=== PATIENT | female | born 1950 | race American Indian/Alaskan Native ===

== ENCOUNTER 2018-01-20 08:32 | Outpatient (CLI) | payer BC, MEDICARE ==
--- NOTE | 2018-01-20 09:53 | Mammography Report ---
BILATERAL DIGITAL SCREENING MAMMOGRAM with CAD: 01/20/18 08:32:00 CLINICAL: Routine screening. COMPARISON: 02/03/15 FINDINGS: There are bilateral scattered areas of fibroglandular density.No mass, architectural distortion or suspicious calcifications. IMPRESSION: No mammographic evidence of malignancy. BI-RADS CATEGORY: 1 -- Negative RECOMMENDATION: Routine mammographic screening in one year. COMMENT: Patient follow-up letters are generated by our [facility] application.
--- NOTE | 2018-01-20 10:22 | Mammography Report ---
BONE DEXA:01/20/18 08:32:00 CLINICAL: Postmenopausal. No comparison. TECHNIQUE: Two site bone DEXA performed on an Hologic scanner. FINDINGS: The average BMD of the lumbar spine L1-L4 is 1.015g/cm squared with a T-score of -1.2 and a Z-score of +0.7. The average BMD of the left hip is 1.038g/cm squared with a T-score of 0 and a Z-score of +1.0. IMPRESSION: 1. WHO classification: Osteopenia with increased fracture risk based on lumbar spine measurements. 2. WHO classification: Normal with average fracture risk based on left hip measurements. RECOMMENDATION: Clinical correlation and routine screening. DEFINITIONS: BMD = Bone Mineral Density T-score = BMD related to mean peak bone mass of young adult (mean expressed in Standard Deviation) Z-score = Age matched BMD expressed in SD World Health Organization (WHO) Diagnostic Criteria Normal T-score > -1 SD Osteopenia T-score between -1 and -2.4 SD Osteoporosis T-score -2.5 SD or below NOTE: BMD is not the only risk factor for fracture. One should also consider factors such as the patient's age, risk of falling, previous osteoporotic fracture, family history of osteoporotic fractures, current smoker, and low body weight. Z-scores are not calculated if >80 years of age.
--- NOTE | 2018-01-20 11:12 | XRay Report ---
XRAY RIGHT SHOULDER THREE VIEWS: 01/20/18 08:32:00 CLINICAL: Acute right shoulder pain. FINDINGS: Normal glenohumeral alignment and minimal glenohumeral joint arthritis. Normal AC joint. No fracture or dislocation. Subchondral cysts and irregularity at the greater tuberosity of the humerus. Normal soft tissues. IMPRESSION: Degenerative changes at the greater tuberosity suggesting possible rotator cuff disease.
== END 2018-01-20 08:33 | disposition home or self-care (01) ==
LOC: SPVWC 08:32
PROVIDERS: ATTEND Internal Medicine
DX: Z12.31 Encounter for screening mammogram for malignant neoplasm of breast (principal); M19.011 Primary osteoarthritis, right shoulder; M85.88 Other specified disorders of bone density and structure, other site; M25.811 Other specified joint disorders, right shoulder; Z78.0 Asymptomatic menopausal state
CPT/HCPCS: 77067; 77080

== ENCOUNTER 2018-11-30 09:26 | Outpatient (CLI) | payer BC, MEDICARE ==
--- NOTE | 2018-11-30 10:32 | XRay Report ---
XRAY LEFT SHOULDER THREE VIEWS: 11/30/18 09:26:00 CLINICAL: Left shoulder and neck pain. FINDINGS: No fracture or dislocation. Normal glenohumeral joint. Normal AC joint. The soft tissues are normal. IMPRESSION: Normal study.
--- NOTE | 2018-11-30 10:34 | XRay Report ---
CERVICAL SPINE SERIES THREE VIEWS: 11/30/18 09:26:00 CLINICAL: Neck pain and left shoulder pain. FINDINGS: Normal vertebral body height, alignment and disk spaces. Small anterior osteophytes at C5-6. No fracture or subluxation. Normal odontoid and C1. Normal facet joints. Normal airway and soft tissues. IMPRESSION: Mild C5- 6 degenerative disc disease.
== END 2018-11-30 09:27 | disposition home or self-care (01) ==
LOC: SPVIMAG 09:26
PROVIDERS: ATTEND Internal Medicine
DX: M50.322 Other cervical disc degeneration at C5-C6 level (principal); M25.512 Pain in left shoulder
CPT/HCPCS: 72040